=== PATIENT | female | born 1970 | race African-American/Black ===

== ENCOUNTER 2023-09-15 09:42 | Emergency (ER) | payer MEDICAID ==
[~2023-09-15] VITALS: Ht 175.3 cm; Wt 90.0 kg
[2023-09-15 09:47] VITALS: BP 134/88; PULSE 75; RESP 16; O2SAT 100
[2023-09-15 10:45] VITALS: TEMP 98.5
[2023-09-15] MEDS: ACETAMINOPHEN 325MG TABLET PO ONE (10:45)
[2023-09-15] MEDS ORDERED: LIDOCAINE HCL/EPINEPHRINE 1%-EPI 1:100,000 20 ML VIAL INFIL ONE (11:45)
[2023-09-15] MEDS: BACITRACIN ZINC OINT UDPKT TOP ONE (11:45)
[2023-09-15] MEDS: LIDOCAINE HCL/PF 1% 10 MG/ML 5ML VIAL INFIL ONE (12:15)
== END 2023-09-15 13:04 | disposition home or self-care (01) ==
LOC: ER 09:42
DX: S61.011A Laceration without foreign body of right thumb without damage to nail, initial encounter (principal); Z98.890 Other specified postprocedural states; Z90.710 Acquired absence of both cervix and uterus; X58.XXXA Exposure to other specified factors, initial encounter; Y93.89 Activity, other specified; Y92.89 Other specified places as the place of occurrence of the external cause; Y99.8 Other external cause status
CPT/HCPCS: 73130; 12001; 99283; J3490; Z7610 ×2